=== PATIENT | female | born 1960 | race Caucasian/White ===

== ENCOUNTER 2020-09-06 05:22 | Emergency (ER) | payer OTHER ==
[~2020-09-06] VITALS: Ht 170.2 cm; Wt 65.8 kg
[~2020-09-06 05:22] MED LIST: ACID CONTROLLER20 MG PO; ASPIR 8181 MG PO; ASPIRIN 325MG325 MG PO; ASPIRIN EC81 MG PO; BASAGLAR K100 UNIT/1 SQ; BRILINTA 90 MG90 MG PO; CARDIZEM CD180 MG PO; CIPRO500 MG PO; CRESTOR40 MG PO; EFFIENT10 MG PO; FLAGYL500 MG PO; HUMALOG100 UNIT/1 SQ; HUMALOG100 UNIT/2 SQ; HYDROCODON-ACE1 EAC4 PO; IMDUR ER TAB 3030 MG PO; ISOSORBIDE MONO60 MG PO; LEVOTHYROXINE50 MCG PO; LEXAPRO20 MG PO; LOPRESSOR 25 MG25 MG PO; METOPROLOL TART25 MG PO; NEURONTIN 400400 MG PO; NEURONTIN800 MG PO; NITROGLYCERIN0.4 MG SL; NITROSTAT0.4 MG SL; NORCO 5-325 TA1 EACH PO; OMEPRAZOLE20 MG PO; PERCOCET 5-3251 EACH PO; PERCOCET 5/325 T1 EA PO; PRILOSEC OTC20 MG PO; RANEXA500 MG PO; RANOLAZINE ER1000 MG PO; SYNTHROID 50 M50 MCG PO; TIZANIDINE HCL4 MG PO; TRESIBA100 UNIT/1 SQ; VIBRAMYCIN100 MG PO; VITAMIN D21250 MCG PO; VITAMIN D250000 UNIT PO; ZANAFLEX4 MG PO; ZOFRAN4 MG PO
[2020-09-06 05:44] LABS: HEMOGLOBIN 11.4 gm/dl (12.3-15.3); RED BLOOD COUNT 3.47 M/UL (4.00-5.10); WHITE BLOOD COUNT 9.2 K/UL (4.5-11.0)
[2020-09-06 06:01] LABS: BUN/CREATININE RATIO 12 (0-10)
== END 2020-09-06 15:57 | disposition left against medical advice (07) ==
LOC: ER1 05:22 → CDU 06:29 → ER1 06:29
PROVIDERS: Family Medicine
DX: R07.9 Chest pain, unspecified (principal); E11.65 Type 2 diabetes mellitus with hyperglycemia; I25.10 Atherosclerotic heart disease of native coronary artery without angina pectoris; Z20.822 Contact with and (suspected) exposure to COVID-19
CPT/HCPCS: ECHO; 71045; 80053; 80061; 82150; 82550; 82553; 82962; 83036; 83690; 83874; 83880; 84484; 85025; 85610; 93005; 93306; 96374; 96375; 99285; G0378; J2550; J7030; U0002

== ENCOUNTER 2020-09-07 23:53 | Emergency (ER) | payer OTHER ==
[2020-09-08 00:54] LABS: RED BLOOD COUNT 2.73 M/UL (4.00-5.10); WHITE BLOOD COUNT 18.5 K/UL (4.5-11.0)
== END 2020-09-08 02:45 | disposition short-term general hospital (02) ==
LOC: ER1 23:53
PROVIDERS: Emergency Medicine
DX: R04.2 Hemoptysis (principal); E11.9 Type 2 diabetes mellitus without complications; I10 Essential (primary) hypertension; F17.210 Nicotine dependence, cigarettes, uncomplicated; Z79.4 Long term (current) use of insulin; Z90.49 Acquired absence of other specified parts of digestive tract; Z90.89 Acquired absence of other organs; Z90.710 Acquired absence of both cervix and uterus
CPT/HCPCS: 71045; 80053; 82800; 83690; 85025; 85610; 85730; 86850; 86870; 86900; 86901; 96374; 96375; 99285; C9113; J2354; J2550; J3010

== ENCOUNTER 2020-09-25 02:50 | Emergency (ER) | payer OTHER ==
[~2020-09-25] VITALS: Ht 170.2 cm; Wt 65.8 kg
[2020-09-25 04:00] LABS: BUN/CREATININE RATIO 7 (0-10)
[2020-09-25 04:28] LABS: HEMOGLOBIN 7.9 gm/dl (12.3-15.3); RED BLOOD COUNT 2.43 M/UL (4.00-5.10); WHITE BLOOD COUNT 8.8 K/UL (4.5-11.0)
[2020-09-25] MEDS ORDERED: ISOSORBIDE MONO60 MG PO (10:23)
[2020-09-25] MEDS ORDERED: EFFIENT10 MG PO (10:23)
[2020-09-25] MEDS ORDERED: BASAGLAR K100 UNIT/1 SC (10:24)
[2020-09-25] MEDS ORDERED: TIZANIDINE HCL2 MG PO (10:24)
[2020-09-25] MEDS ORDERED: OMEPRAZOLE20 MG PO (10:25)
[2020-09-25] MEDS ORDERED: NOVOLOG100 UNIT/1 SC (10:25)
[2020-09-25] MEDS ORDERED: LASIX40 MG PO (10:26)
[2020-09-25] MEDS ORDERED: ROCEPHIN IM/IV500 MG (10:27)
[2020-09-25] MEDS ORDERED: SODIUM CHLORID (10:28)
[2020-09-25] MEDS ORDERED: HYDROCODON-ACE1 EAC4 PO (12:23)
== END 2020-09-25 13:40 | disposition short-term general hospital (02) ==
LOC: ER1 02:50 → CDU 08:15 → ER1 13:40
PROVIDERS: Family Medicine
DX: N30.00 Acute cystitis without hematuria (principal); N12 Tubulo-interstitial nephritis, not specified as acute or chronic; E87.6 Hypokalemia; E11.65 Type 2 diabetes mellitus with hyperglycemia; R18.8 Other ascites; Z20.822 Contact with and (suspected) exposure to COVID-19; B95.62 Methicillin resistant Staphylococcus aureus infection as the cause of diseases classified elsewhere; D50.9 Iron deficiency anemia, unspecified; I25.10 Atherosclerotic heart disease of native coronary artery without angina pectoris; E03.9 Hypothyroidism, unspecified; E78.5 Hyperlipidemia, unspecified; B19.20 Unspecified viral hepatitis C without hepatic coma; D69.6 Thrombocytopenia, unspecified; F17.200 Nicotine dependence, unspecified, uncomplicated; J44.9 Chronic obstructive pulmonary disease, unspecified; Z79.4 Long term (current) use of insulin; Z79.82 Long term (current) use of aspirin; Z79.899 Other long term (current) drug therapy; Z86.19 Personal history of other infectious and parasitic diseases
CPT/HCPCS: 71045; 80053; 81001; 82550; 82553; 83605; 83874; 83880; 84484; 85025; 85610; 87086; 93005; 96374; 99285; J0692; J0696; J2270; J2405; J3370; J7070; Q9967; U0002

== ENCOUNTER 2020-11-15 01:14 | Observation (INO) | payer OTHER ==
[~2020-11-15] VITALS: Ht 170.2 cm; Wt 65.8 kg
[~2020-11-15 01:14] MED LIST changes: +BASAGLAR K100 UNIT/1 SC; +LASIX40 MG PO; +NOVOLOG100 UNIT/1 SC; +ROCEPHIN IM/IV500 MG; +SODIUM CHLORID; +TIZANIDINE HCL2 MG PO
[2020-11-15 02:22] LABS: HEMOGLOBIN 11.1 gm/dl (12.3-15.3); RED BLOOD COUNT 3.43 M/UL (4.00-5.10); WHITE BLOOD COUNT 4.9 K/UL (4.5-11.0)
[2020-11-15 02:55] LABS: BUN/CREATININE RATIO 9 (0-10)
[2020-11-15 08:29] LABS: BODY FLUID SOURCE ASCITES; MONONUCLEAR CELLS 87 (75-100); POLYMORPHONUCLEAR % 13 (0-25); RBC (AUTOMATED) 200 (0-100000); WBC (AUTOMATED) 76 (0-500)
[2020-11-15] MEDS ORDERED: VITAMIN D3125 MCG PO (10:22)
[2020-11-15] MEDS ORDERED: LEVOTHYROXINE50 MCG PO (10:23)
[2020-11-15] MEDS ORDERED: PROTONIX 40 MG40 M1 PO (11:19)
[2020-11-15] MEDS ORDERED: SPIRONOLACTONE50 MG PO (11:20)
[2020-11-15] MEDS ORDERED: DOCUSATE SODIU100 MG PO (11:21)
[2020-11-15] MEDS ORDERED: METFORMIN HCL500 MG PO (11:21)
[2020-11-15] MEDS ORDERED: LACTULOSE10 GM/15 M PO (11:22)
[2020-11-15] MEDS ORDERED: XIFAXAN550 MG PO (11:23)
[2020-11-15 13:10] LABS: BUN/CREATININE RATIO 11 (0-10)
[2020-11-16 03:04] LABS: HEMOGLOBIN 8.3 gm/dl (12.3-15.3); RED BLOOD COUNT 2.58 M/UL (4.00-5.10); WHITE BLOOD COUNT 2.6 K/UL (4.5-11.0)
[2020-11-16 03:25] LABS: BUN/CREATININE RATIO 11 (0-10)
[2020-11-16 11:33] LABS: HEMOGLOBIN 9.5 gm/dl (12.3-15.3)
[2020-11-16 11:34] LABS: RED BLOOD COUNT 2.95 M/UL (4.00-5.10)
== END 2020-11-16 12:55 | disposition home or self-care (01) ==
LOC: ER1 01:14 → MED SURG 4 10:19 → CDU 10:19 → MED SURG 4 12:19
PROVIDERS: Family Medicine; Internal Medicine; Physician Assistant; ADMIT Internal Medicine
DX: K74.60 Unspecified cirrhosis of liver (principal); R18.8 Other ascites; R06.00 Dyspnea, unspecified; E11.9 Type 2 diabetes mellitus without complications; D69.6 Thrombocytopenia, unspecified; I10 Essential (primary) hypertension; E78.5 Hyperlipidemia, unspecified; E03.9 Hypothyroidism, unspecified; I25.10 Atherosclerotic heart disease of native coronary artery without angina pectoris; I25.2 Old myocardial infarction; J44.9 Chronic obstructive pulmonary disease, unspecified; F17.210 Nicotine dependence, cigarettes, uncomplicated; Z95.5 Presence of coronary angioplasty implant and graft; Z88.5 Allergy status to narcotic agent; Z88.8 Allergy status to other drugs, medicaments and biological substances; Z79.4 Long term (current) use of insulin; Z79.899 Other long term (current) drug therapy; Z79.82 Long term (current) use of aspirin; Z20.822 Contact with and (suspected) exposure to COVID-19
CPT/HCPCS: 0240U; 36415; 36430; 36600; 70450; 71045; 80053; 80307; 82140; 82550; 82553; 82803; 82962; 83540; 83550; 83605; 83735; 83874; 83880; 84100; 84484; 85025; 85610; 85730; 86140; 86850; 86900; 86901; 89051; 93005; 96374; 96375; 96376; 99285; G0378; J0780; J7050; P9035; P9047

== ENCOUNTER 2020-11-18 18:33 | Emergency (ER) | payer OTHER ==
[~2020-11-18 18:33] MED LIST changes: +DOCUSATE SODIU100 MG PO; +LACTULOSE10 GM/15 M PO; +METFORMIN HCL500 MG PO; +PROTONIX 40 MG40 M1 PO; +SPIRONOLACTONE50 MG PO; +VITAMIN D3125 MCG PO; +XIFAXAN550 MG PO
== END 2020-11-18 20:21 | disposition home or self-care (01) ==
LOC: ER1 18:33
DX: K86.89 Other specified diseases of pancreas (principal); I10 Essential (primary) hypertension; E78.5 Hyperlipidemia, unspecified; E03.9 Hypothyroidism, unspecified; I25.10 Atherosclerotic heart disease of native coronary artery without angina pectoris; I25.2 Old myocardial infarction; E11.9 Type 2 diabetes mellitus without complications; Z88.5 Allergy status to narcotic agent; F17.200 Nicotine dependence, unspecified, uncomplicated
CPT/HCPCS: 99284

== ENCOUNTER 2020-12-04 01:45 | Emergency (ER) | payer OTHER ==
[~2020-12-04 01:45] MED LIST changes: -ASPIR 8181 MG PO
[2020-12-04] MEDS ORDERED: Voltaren Gel 1 % TOP (05:03)
[2020-12-04] MEDS ORDERED: NORFLEX 100 MG100 MG PO (05:03)
[2021-01-03] MEDS ORDERED: POTASSIUM99 M1 PO (11:19)
[2021-01-03] MEDS ORDERED: OXYCODONE HCL10 MG PO (11:28)
[2021-01-03] MEDS ORDERED: ISOSORBIDE MONO60 MG PO (11:28)
== END 2020-12-04 06:48 | disposition home or self-care (01) ==
LOC: ER1 01:45
DX: M54.5 Low back pain (principal); I25.10 Atherosclerotic heart disease of native coronary artery without angina pectoris; I50.9 Heart failure, unspecified; E11.9 Type 2 diabetes mellitus without complications; F17.210 Nicotine dependence, cigarettes, uncomplicated; Z90.49 Acquired absence of other specified parts of digestive tract; Z90.710 Acquired absence of both cervix and uterus; Z88.5 Allergy status to narcotic agent; Z88.1 Allergy status to other antibiotic agents; Z88.8 Allergy status to other drugs, medicaments and biological substances
CPT/HCPCS: 96372; 99283; J1170; J2360; J2930

== ENCOUNTER → 2020-12-24 | Outpatient (CLI) | payer OTHER ==
[~2020-12-24] MED LIST changes: +CYCLOBENZAPRINE5 MG PO; +NORFLEX 100 MG100 MG PO; +OXYCODONE HCL E10 MG PO; +OXYCODONE HCL10 MG PO; +POTASSIUM99 M1 PO; +REGLAN5 MG PO; +Voltaren Gel 1 % TOP
== END ==
LOC: KOH-I 12-20 09:00 → EMI 08:57
DX: M48.54XA Collapsed vertebra, not elsewhere classified, thoracic region, initial encounter for fracture (principal)
CPT/HCPCS: 72146

== ENCOUNTER → 2021-01-03 | Outpatient (CLI) | payer OTHER ==
[2021-01-03 12:03] LABS: BUN/CREATININE RATIO 9 (0-10)
[2021-01-03 12:12] LABS: HEMOGLOBIN 12.2 gm/dl (12.3-15.3); RED BLOOD COUNT 3.7 M/UL (4.00-5.10); WHITE BLOOD COUNT 6.6 K/UL (4.5-11.0)
== END ==
LOC: OPSV2 10:00
PROVIDERS: Orthopaedic Surgery
DX: Z01.818 Encounter for other preprocedural examination (principal); M48.54XA Collapsed vertebra, not elsewhere classified, thoracic region, initial encounter for fracture; I45.10 Unspecified right bundle-branch block; R94.31 Abnormal electrocardiogram [ECG] [EKG]
CPT/HCPCS: 71046; 80048; 83036; 85025; 93005

== ENCOUNTER → 2021-01-07 | Outpatient (CLI) | payer OTHER | LOC: LAB 10:43 | DX: Z01.812 Encounter for preprocedural laboratory examination (principal) | CPT/HCPCS: 36415; 86850; 86900; 86901 ==

== ENCOUNTER → 2021-01-08 | Day surgery (SDC) | payer OTHER ==
[~2021-01-08] VITALS: Ht 170.2 cm; Wt 63.0 kg
[2021-01-08 06:34] LABS: HEMOGLOBIN 10.7 gm/dl (12.3-15.3); RED BLOOD COUNT 3.21 M/UL (4.00-5.10); WHITE BLOOD COUNT 5.9 K/UL (4.5-11.0)
== END | disposition home or self-care (01) ==
LOC: OR 05:40
PROVIDERS: Orthopaedic Surgery
DX: M80.08XA Age-related osteoporosis with current pathological fracture, vertebra(e), initial encounter for fracture (principal); E78.5 Hyperlipidemia, unspecified; E11.9 Type 2 diabetes mellitus without complications; I25.10 Atherosclerotic heart disease of native coronary artery without angina pectoris; K74.60 Unspecified cirrhosis of liver; K21.9 Gastro-esophageal reflux disease without esophagitis; Z95.5 Presence of coronary angioplasty implant and graft; Z79.4 Long term (current) use of insulin; Z88.5 Allergy status to narcotic agent; F17.210 Nicotine dependence, cigarettes, uncomplicated; Z20.822 Contact with and (suspected) exposure to COVID-19; I50.9 Heart failure, unspecified; F32.9 Major depressive disorder, single episode, unspecified; E03.9 Hypothyroidism, unspecified
CPT/HCPCS: 82962; 85027; C1713; J0690; J1100; J1200; J2001; J2250; J2370; J2405; J2704; J3010; J7030; J7120; Q9967

== ENCOUNTER 2021-01-09 17:34 | Emergency (ER) | payer OTHER ==
[~2021-01-09 17:34] MED LIST changes: -CYCLOBENZAPRINE5 MG PO; -OXYCODONE HCL E10 MG PO; -REGLAN5 MG PO
[2021-01-09] MEDS ORDERED: CYCLOBENZAPRINE5 MG PO (20:29)
[2021-01-09] MEDS ORDERED: REGLAN5 MG PO (20:29)
[2021-01-09] MEDS ORDERED: OXYCODONE HCL E10 MG PO (20:29)
== END 2021-01-09 20:35 | disposition home or self-care (01) ==
LOC: ER1 17:34
DX: S30.0XXA Contusion of lower back and pelvis, initial encounter (principal); G89.18 Other acute postprocedural pain; I50.9 Heart failure, unspecified; I25.10 Atherosclerotic heart disease of native coronary artery without angina pectoris; E11.9 Type 2 diabetes mellitus without complications; F17.210 Nicotine dependence, cigarettes, uncomplicated; M54.9 Dorsalgia, unspecified; X58.XXXA Exposure to other specified factors, initial encounter
CPT/HCPCS: 99283

== ENCOUNTER → 2021-02-11 | Outpatient (CLI) | payer MEDICARE, OTHER ==
[~2021-02-11] MED LIST changes: +CYCLOBENZAPRINE5 MG PO; +OXYCODONE HCL E10 MG PO; +REGLAN5 MG PO
[2021-02-11 11:30] LABS: HEMOGLOBIN 12.3 gm/dl (12.3-15.3); RED BLOOD COUNT 3.92 M/UL (4.00-5.10); WHITE BLOOD COUNT 5.8 K/UL (4.5-11.0)
[2021-02-11 11:49] LABS: BUN/CREATININE RATIO 9 (0-10)
[2021-02-12 09:13] LABS: CREATININE, URINE 203.1 mg/dL (Not Estab.)
== END ==
LOC: LAB 10:36
PROVIDERS: Family Medicine
DX: E55.9 Vitamin D deficiency, unspecified (principal); E11.9 Type 2 diabetes mellitus without complications; E03.9 Hypothyroidism, unspecified; K74.60 Unspecified cirrhosis of liver; E78.5 Hyperlipidemia, unspecified
CPT/HCPCS: 80053; 80061; 82043; 82570; 83735; 84439; 84443; 85027

== ENCOUNTER 2021-02-15 12:33 | Emergency (ER) | payer MEDICARE, OTHER ==
[2021-02-15 15:04] LABS: HEMOGLOBIN 11.4 gm/dl (12.3-15.3); RED BLOOD COUNT 3.51 M/UL (4.00-5.10); WHITE BLOOD COUNT 6.1 K/UL (4.5-11.0)
[2021-02-15] MEDS ORDERED: HYDROCODON-ACE1 EAC4 PO ×2 (16:26→17:02)
== END 2021-02-15 16:55 | disposition home or self-care (01) ==
LOC: ER1 12:33
PROVIDERS: Emergency Medicine
DX: M48.54XA Collapsed vertebra, not elsewhere classified, thoracic region, initial encounter for fracture (principal); M48.56XA Collapsed vertebra, not elsewhere classified, lumbar region, initial encounter for fracture; E11.9 Type 2 diabetes mellitus without complications; I10 Essential (primary) hypertension; Z90.49 Acquired absence of other specified parts of digestive tract; Z90.89 Acquired absence of other organs; Z90.710 Acquired absence of both cervix and uterus; F17.200 Nicotine dependence, unspecified, uncomplicated
CPT/HCPCS: 72128; 72131; 80053; 85025; 85652; 86140; 87040; 96374; 96375; 99284; J1170; J2405; J2550

== ENCOUNTER → 2021-02-19 | Outpatient (CLI) | payer MEDICARE, OTHER ==
[~2021-02-19] VITALS: Ht 170.2 cm; Wt 63.0 kg
[2021-02-20 20:09] LABS: HBV IU/ML HBV DNA not detected IU/mL (.)
== END ==
LOC: OPSV 09:50
PROVIDERS: Internal Medicine Gastroenterology
DX: R18.8 Other ascites (principal); K74.69 Other cirrhosis of liver
CPT/HCPCS: 36415; 80048; 80076; 85610; 87517; 96365; C1729; P9047

== ENCOUNTER → 2021-03-05 | Outpatient (CLI) | payer MEDICARE, OTHER ==
[~2021-03-05] VITALS: Ht 170.2 cm; Wt 63.0 kg
[2021-03-05 10:59] LABS: HEMOGLOBIN 9.9 gm/dl (12.3-15.3); RED BLOOD COUNT 3.02 M/UL (4.00-5.10); WHITE BLOOD COUNT 4.7 K/UL (4.5-11.0)
[2021-03-05 11:29] LABS: BUN/CREATININE RATIO 12 (0-10)
== END ==
LOC: OPSV 09:55
PROVIDERS: Internal Medicine Gastroenterology
DX: D64.9 Anemia, unspecified (principal); R94.4 Abnormal results of kidney function studies
CPT/HCPCS: 36415; 80048; 82728; 83540; 83550; 85025; 85045

== ENCOUNTER → 2021-03-12 | Day surgery (SDC) | payer MEDICARE, OTHER ==
[~2021-03-12] MED LIST changes: +ECOTRIN325 MG PO; +IRON240 MG PO; +ISOSORBIDE PO; +LASIX20 MG PO; -LASIX40 MG PO; +LEVEMIR FL100 UNIT/1 SQ; +MULTI-VITAMIN1 EACH PO; -NOVOLOG100 UNIT/1 SC; +PROMETHAZINE12.5 M1 PO; +PROPRANOLOL HCL20 MG PO; +SPIRONOLACTONE100 MG PO; +XIFAXAN 550 MG550 MG PO; +ZYVOX600 MG PO
[2021-03-12 07:23] LABS: HEMOGLOBIN 10.5 gm/dl (12.3-15.3); RED BLOOD COUNT 3.23 M/UL (4.00-5.10)
== END | disposition home or self-care (01) ==
LOC: OR 06:52
PROVIDERS: Family Medicine
DX: K74.60 Unspecified cirrhosis of liver (principal); K29.70 Gastritis, unspecified, without bleeding; B18.1 Chronic viral hepatitis B without delta-agent; K76.6 Portal hypertension; K31.89 Other diseases of stomach and duodenum; I85.10 Secondary esophageal varices without bleeding; I50.9 Heart failure, unspecified; K21.9 Gastro-esophageal reflux disease without esophagitis; E11.9 Type 2 diabetes mellitus without complications; F17.210 Nicotine dependence, cigarettes, uncomplicated; Z88.5 Allergy status to narcotic agent; Z88.8 Allergy status to other drugs, medicaments and biological substances; Z79.4 Long term (current) use of insulin; Z79.899 Other long term (current) drug therapy
CPT/HCPCS: 80048; 82728; 82962; 83540; 83550; 85025; 85045; J2550; J2704; J7040

== ENCOUNTER 2021-03-13 11:48 | Inpatient (IN) | payer MEDICARE, OTHER ==
[~2021-03-13] VITALS: Ht 170.2 cm; Wt 59.0 kg
[~2021-03-13 11:48] MED LIST changes: -IRON240 MG PO; -PROMETHAZINE12.5 M1 PO; -PROPRANOLOL HCL20 MG PO; -XIFAXAN 550 MG550 MG PO; -ZYVOX600 MG PO
[2021-03-13 13:01] LABS: RED BLOOD COUNT 3.03 M/UL (4.00-5.10)
[2021-03-13 13:09] LABS: WHITE BLOOD COUNT 4.3 K/UL (4.5-11.0)
[2021-03-13] MEDS ORDERED: PROMETHAZINE12.5 M1 PO (18:22)
[2021-03-13] MEDS ORDERED: TIZANIDINE HCL4 MG PO (18:23)
[2021-03-13] MEDS ORDERED: PROPRANOLOL HCL20 MG PO (18:23)
[2021-03-14 06:32] LABS: HEMOGLOBIN 8.6 gm/dl (12.3-15.3); WHITE BLOOD COUNT 3.6 K/UL (4.5-11.0)
[2021-03-14 06:35] LABS: RED BLOOD COUNT 2.61 M/UL (4.00-5.10)
--- NOTE | 2021-03-14 11:23 | NUR ---
PT GONE TO SURGERY AT THIS TIME NOTED
[2021-03-15 09:41] LABS: HEMOGLOBIN 9.4 gm/dl (12.3-15.3); RED BLOOD COUNT 2.84 M/UL (4.00-5.10); WHITE BLOOD COUNT 4.9 K/UL (4.5-11.0)
[2021-03-16 07:15] LABS: HEMOGLOBIN 9.3 gm/dl (12.3-15.3); RED BLOOD COUNT 2.87 M/UL (4.00-5.10); WHITE BLOOD COUNT 4.7 K/UL (4.5-11.0)
--- NOTE | 2021-03-16 13:29 | NUR ---
PT LEFT FLOOR TO GO SMOKE AT 1145, JUST RETURNED ULTRASOUND GUIDED IV THAT WAS PLACED AROUND 10 AM PAINFUL WHEN ATTEMPTED TO FLUSH. RESOURCE NURSE NOTIFIED TO OBTAIN ANOTHER US GUIDED IV
[2021-03-17 04:09] LABS: HEMOGLOBIN 8.6 gm/dl (12.3-15.3); RED BLOOD COUNT 2.63 M/UL (4.00-5.10); WHITE BLOOD COUNT 3.9 K/UL (4.5-11.0)
[2021-03-18 06:49] LABS: HEMOGLOBIN 8.1 gm/dl (12.3-15.3); RED BLOOD COUNT 2.54 M/UL (4.00-5.10); WHITE BLOOD COUNT 2.9 K/UL (4.5-11.0)
[2021-03-18 07:04] LABS: BUN/CREATININE RATIO 16 (0-10)
[2021-03-18] MEDS ORDERED: ZYVOX600 MG PO (15:47)
[2021-03-18] MEDS ORDERED: XIFAXAN 550 MG550 MG PO (15:47)
[2021-03-18] MEDS ORDERED: IRON240 MG PO (16:07)
== END 2021-03-18 18:19 | disposition home or self-care (01) | DRG 571 ==
LOC: ER1 11:48 → M/S 16:56 → CDU 16:56 → M/S 20:15
PROVIDERS: Podiatrist Foot & Ankle Surgery; Student in an Organized Health Care Education/Training Program; ADMIT Internal Medicine
PROC: 0J9Q0ZZ Drainage of Right Foot Subcutaneous Tissue and Fascia, Open Approach (ICD-10-PCS; 2021-03-14)
PROC: 0JBQ0ZZ Excision of Right Foot Subcutaneous Tissue and Fascia, Open Approach (ICD-10-PCS; principal; 2021-03-14 12:15)
DX: L02.611 Cutaneous abscess of right foot (principal); E11.52 Type 2 diabetes mellitus with diabetic peripheral angiopathy with gangrene; I85.00 Esophageal varices without bleeding; K76.6 Portal hypertension; Z20.822 Contact with and (suspected) exposure to COVID-19; D61.818 Other pancytopenia; M80.88XA Other osteoporosis with current pathological fracture, vertebra(e), initial encounter for fracture; E87.2 Acidosis; N17.9 Acute kidney failure, unspecified; N39.0 Urinary tract infection, site not specified; L03.115 Cellulitis of right lower limb; I13.0 Hypertensive heart and chronic kidney disease with heart failure and stage 1 through stage 4 chronic kidney disease, or unspecified chronic kidney disease; K29.60 Other gastritis without bleeding; K31.89 Other diseases of stomach and duodenum; I25.10 Atherosclerotic heart disease of native coronary artery without angina pectoris; E03.9 Hypothyroidism, unspecified; I95.89 Other hypotension; I50.9 Heart failure, unspecified; W18.39XA Other fall on same level, initial encounter; B19.20 Unspecified viral hepatitis C without hepatic coma; D50.9 Iron deficiency anemia, unspecified; F17.210 Nicotine dependence, cigarettes, uncomplicated; K74.60 Unspecified cirrhosis of liver; E11.621 Type 2 diabetes mellitus with foot ulcer; K59.00 Constipation, unspecified; Z79.4 Long term (current) use of insulin; Z79.82 Long term (current) use of aspirin; Z90.49 Acquired absence of other specified parts of digestive tract; Z95.5 Presence of coronary angioplasty implant and graft; Z88.8 Allergy status to other drugs, medicaments and biological substances; Z88.6 Allergy status to analgesic agent
CPT/HCPCS: 36415; 71045; 72128; 72131; 73630; 73721; 80048; 80053; 80061; 80076; 80202; 81001; 82962; 83036; 83605; 83735; 85025; 85027; 85610; 85652; 85730; 86140; 87040; 87070; 87077; 87186; 87205; 93005; 93925; 94640; 94664; 94760; 96374; 97161; 99284; C1751; J0692; J0696; J1100; J1170; J2001; J2550; J2704; J2795; J3010; J3370; J7050; J7070; J7120; P9047; Q0177; U0002

== ENCOUNTER → 2021-03-13 | Outpatient (CLI) | payer MEDICARE, OTHER | LOC: EXRD 11:01 | DX: Z13.820 Encounter for screening for osteoporosis (principal); S22.000A Wedge compression fracture of unspecified thoracic vertebra, initial encounter for closed fracture; Z78.0 Asymptomatic menopausal state | CPT/HCPCS: 77080 ==